=== PATIENT | male | born 1990 | race Asian ===

== ENCOUNTER 2016-08-06 12:44 | Emergency (ER) | payer OTHER ==
--- NOTE | 2016-08-06 13:58 | RAD ---
INDICATION: Left upper quadrant pain. COMPARISON: There are no prior studies available for comparison. TECHNIQUE: Multiple real-time images of the left upper quadrant were obtained. FINDINGS: The spleen is normal in size, shape and echogenicity. The spleen measured 9.9 x 5.2 x 5.8 cm. No focal abnormalities were seen. IMPRESSION: NEGATIVE EXAM.
--- NOTE | 2016-08-06 14:17 | ED ---
Abdominal Pain/Male - HPI Summary HPI Summary: Patient presents with 3 months of LUQ discomfort that resolves when he eats. He denies trauma, SOB, CP, fever, chills, N/V/D, or jaundice. He has been seen at [facility] for the same and was told he has gas, and should change his diet. He is able to exercise, eat, stool, urinate and work without any difficulty or limitations. He does not have any pain at this time. - History of Current Complaint Chief Complaint: EDAbdPain Stated Complaint: ABD PAIN WHEN FEELS HUNGRY Hx Obtained From: Patient Onset/Duration: Gradual Onset Timing: Lasting Weeks - 12 Severity Initially: Mild Severity Currently: None - he just ate Pain Intensity: 0 Location: Discrete At: LUQ Radiates: No Character: Other: - gas like Aggravating Factor(s): Nothing Alleviating Factor(s): Other: - eating Associated Signs And Symptoms: Positive: Negative - Allergies/Home Medications Allergies/Adverse Reactions: Allergies Allergy/AdvReac Type Severity Reaction Status Date / Time No Known Allergies Allergy Verified 08/06/16 12:53 PMH/Surg Hx/FS Hx/Imm Hx Previously Healthy: Yes Infectious Disease History: No Infectious Disease History: Denies: Traveled Outside the [place] in Last 30 Days - Family History Known Family History: Positive: None - Social History Occupation: Student Lives: Alone Alcohol Use: Rare Substance Use Type: Reports: None Smoking Status (MU): Never Smoked Tobacco Review of Systems All Other Systems Reviewed And Are Negative: Yes Physical Exam Triage Information Reviewed: Yes Vital Signs On Initial Exam: Initial Vitals Temp Pulse Resp BP Pulse Ox 98.6 F 79 16 117/63 97 08/06/16 12:53 08/06/16 12:53 08/06/16 12:53 08/06/16 12:53 08/06/16 12:53 Vital Signs Reviewed: Yes Appearance: Positive: Well-Appearing, No Pain Distress, Well-Nourished Skin: Positive: Warm, Skin Color Reflects Adequate Perfusion, Dry, Soft Head/Face: Positive: Normal Head/Face Inspection Eyes: Positive: EOMI, BELKIS, Conjunctiva Clear ENT: Positive: Hearing grossly normal, Pharynx normal Neck: Positive: Supple, Nontender, No Lymphadenopathy Respiratory/Lung Sounds: Positive: Clear to Auscultation, Breath Sounds Present Cardiovascular: Positive: RRR Abdomen Description: Positive: Nontender, Soft. Negative: CVA Tenderness (R), CVA Tenderness (L), Distended, Guarding, Hepatomegaly, McBurney's Point Tenderness, Splenomegaly Bowel Sounds: Positive: Present Musculoskeletal: Negative: Edema Left, Edema Right Neurological: Positive: Sensory/Motor Intact, Alert, Oriented to Person Place, Time, NV Bundle Intact Distally, Normal Gait Psychiatric: Positive: Affect/Mood Appropriate AVPU Assessment: Alert Diagnostics - Vital Signs Vital Signs Temp Pulse Resp BP Pulse Ox 08/06/16 12:53 98.6 F 79 16 117/63 97 - Laboratory Lab Statement: Any lab studies that have been ordered have been reviewed, and results considered in the medical decision making process. - Ultrasound No standard instances Ultrasound Interpretation: No Acute Changes Ultrasound Interpretation Completed By: Radiologist Abdominal Pain Fem Course/Dx - Course Course Of Treatment: The patient's condition appears chronic in nature, and is not present at this visit. We discussed this extensively, and he will follow-up at [facility] is symptoms persist. - Diagnoses Differential Diagnosis/HQI/PQRI: Constipation, Gall Bladder Disease, Pancreatitis, Peptic Ulcer Disease, Renal Colic, Ureteral Stone, Urinary Tract Infection Provider Diagnoses: LUQ abdominal pain Discharge - Discharge Plan Condition: Stable Disposition: HOME Patient Education Materials: Gas and Bloating (ED) Referrals: [facility] [Primary Care Provider] - Additional Instructions: Please follow-up with Sameer next week if your symptoms continue.
[2016-08-06 15:31] VITALS: BP 100/59
== END 2016-08-06 15:28 | disposition home or self-care (01) ==
LOC: ED 12:44
DX: R10.12 Left upper quadrant pain (principal)
CPT/HCPCS: 76705; 99282

== ENCOUNTER 2016-09-02 12:02 | Emergency (ER) | payer OTHER ==
--- NOTE | 2016-09-02 14:00 | ED ---
Throat Pain/Nasal Congestion - HPI Summary HPI Summary: Patient arrives to ED with CC of right medial canthus eye itchiness since last night. He denies other symptoms and denies pain. He denies allergies and states this is the first time something like this has happened. He denies trauma or known infection. The itchiness was worse last night and better today. He also notes to the medial canthus swelling and states it was difficult to close his eye last evening, but that also has improved. There is a slight language barrier. He it otherwise healthy and takes no medications. He denies an environment where there would be excess allergies and he denies change of soaps and lotions in the home. - History of Current Complaint Chief Complaint: EDEyeProblem Time Seen by Provider: 09/02/16 12:19 Hx Obtained From: Patient Onset/Duration: Sudden Onset Severity: Moderate - Epiglottits Risk Factors Epiglottis Risk Factors: Negative - Allergies/Home Medications Allergies/Adverse Reactions: Allergies Allergy/AdvReac Type Severity Reaction Status Date / Time No Known Allergies Allergy Verified 08/06/16 12:53 PMH/Surg Hx/FS Hx/Imm Hx Previously Healthy: Yes - Immunization History Hx Pertussis Vaccination: No Immunizations Up to Date: Yes Infectious Disease History: No Infectious Disease History: Denies: Traveled Outside the [place] in Last 30 Days - Family History Known Family History: Positive: None - Social History Occupation: Unemployed Lives: With Family Alcohol Use: Rare Hx Substance Use: No Substance Use Type: Reports: None Hx Tobacco Use: No Smoking Status (MU): Never Smoked Tobacco Do You Chew or Dip Tobacco: No Have You Chewed or Dipped Tobacco in the LAST YEAR: No Review of Systems Constitutional: Negative Positive: Other - itchy eyes - most prominent over medial canthus of left eye ENT: Negative Cardiovascular: Negative Respiratory: Negative Musculoskeletal: Negative Skin: Negative Neurological: Negative Positive: Anxious All Other Systems Reviewed And Are Negative: Yes Physical Exam Triage Information Reviewed: Yes Vital Signs On Initial Exam: Initial Vitals Temp Pulse Resp BP Pulse Ox 98.1 F 76 20 126/75 100 09/02/16 12:07 09/02/16 12:07 09/02/16 12:07 09/02/16 12:07 09/02/16 12:07 Vital Signs Reviewed: Yes Appearance: Positive: Well-Appearing, No Pain Distress, Well-Nourished Skin: Positive: Warm, Skin Color Reflects Adequate Perfusion Head/Face: Positive: Normal Head/Face Inspection Eyes: Positive: EOMI, BELKIS, Conjunctiva Clear, Other: - cobblestoning over bilateral lower lids ENT: Positive: Pharynx normal Neck: Positive: Supple, Nontender, No Lymphadenopathy Cardiovascular: Positive: Normal, RRR Musculoskeletal: Positive: Strength/ROM Intact Neurological: Positive: Normal, Sensory/Motor Intact Psychiatric: Positive: Normal AVPU Assessment: Alert Diagnostics - Vital Signs Vital Signs Temp Pulse Resp BP Pulse Ox 09/02/16 12:23 98.0 F 76 18 125/73 100 09/02/16 12:07 98.1 F 76 20 126/75 100 - Laboratory Lab Statement: Any lab studies that have been ordered have been reviewed, and results considered in the medical decision making process. EENT Course/Dx - Course Course Of Treatment: Patient presents to ED with left eye itchiness since last night. He denies trauma, allergies or recent infection. Eye itching over the lacrimal caruncle cobblestoning over eyes in lower lids bilaterally, no tearing or erythema appreciated. Claritin prescribed, anti-itch drops prescribed. patient requesting antibiotic drops stating he feels there may be an infection since he does not have allergies. It was explained to patient he could have gotten an allergen such as dust in the lacrimal canthus which caused itchiness. He agrees and still requests antibiotics. Antiobiotic drops prescribed. - Differential Diagnoses Differential Diagnoses: Allergic Rhinitis, Conjunctivitis, Sinusitis - Diagnoses Provider Diagnoses: Allergic conjunctivitis Discharge - Discharge Plan Condition: Stable Disposition: HOME Prescriptions: Ketotifen Fumarate (Ophth) [Zaditor] 0.025 % OP Q12H #1 bandar Loratadine & Pseudoephedrine [Claritin-D 24 Hour 10-240 mg] 1 tab PO DAILY #10 tab Polymyx/Trimethoprim OPTH* [Polytrim OPHTH*] 1 drop RIGHT EYE Q3H #1 btl Patient Education Materials: Conjunctivitis (ED) Referrals: [facility] [Primary Care Provider] - Additional Instructions: dx: Allergic Conjunctivitis with possible bacterial component Drops as prescribed warm compresses to the area several times per day for relief. This is likely an allergy to the right eye and needs to be treated with anti- histamines. If symptoms become worse, call ophthalmology Images - Images Eyes: 1 - eye itching over the lacrimal caruncle cobblestoning over eyes in lower lids bilaterally, no tearing or erythema appreciated.
[2016-09-02 14:01] VITALS: BP 123/75
== END 2016-09-02 13:58 | disposition home or self-care (01) ==
LOC: ED 12:02
DX: H10.10 Acute atopic conjunctivitis, unspecified eye (principal); F41.9 Anxiety disorder, unspecified
CPT/HCPCS: 99282